=== PATIENT | female | born 1995 | race Caucasian/White ===

== ENCOUNTER 2017-10-20 11:40 | Emergency (ER) | payer OTHER ==
--- NOTE | 2017-10-20 13:23 | RAD ---
INDICATION: Right lower quadrant pain. Evaluate for ovarian torsion. History of left ovarian cancer with ORIF recommend COMPARISON: None TECHNIQUE: Longitudinal and transverse transvaginal scans of the pelvis were obtained. FINDINGS: Uterus: The uterus is normal in size. There are no focal masses. The uterus measures 7.0 x 2.6 x 3.9 cm. Endometrial thickness: The endometrial thickness is measured at 0.3 cm. There is an IUD in expected position. Free fluid: There is no significant free fluid . Ovaries: The ovaries are normal in size. The right ovary measures 2.7 x 1.5 x 3.9 cm. The left ovary is absent. Doppler interrogation demonstrates flow to the right ovary. Other: None IMPRESSION: left oophrectomy. Normal right ovary.
--- NOTE | 2017-10-20 13:39 | ED ---
Abdominal Pain/Female - HPI Summary HPI Summary: Pt sent here from [facility] with concern for right ovarian torsion as she reported abrupt onset RLQ pain w/ nausea this morning around 9:00am. Worsened as morning went on and she reports pain was so bad at one point, she almost vomited. Has not had anything to eat/drink since pain started (last had a yogurt this morning before pain started - just returned from road trip last night - no undercooked foods, ect but did eat fast food which is not normal for her). 1 loose stool since - no hematochezia, mucous, melena. Currently her pain is 5 out of 10 and she does not feel she needs any pain meds or nausea medicine. Denies fever, chills, headache, chest pain, shortness of breath, vaginal discharge, dysuria, urinary frequency, flank pain. She reports she is on her second day of menstruation currently has an IUD in place which she's had for a year (tiffani). 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 She had a CT scan in Aug for f/u - no findings at this time. She reports last time she had right lower quadrant pain she had appendicitis and so this was removed. She's had pain similar to this as well in the past and reports they've only found "fluid" telling her she may have ruptured an ovarian cyst but no cyst was clearly found on ultrasound. She is sexually active with one partner and denies history of STDs/vaginal infections. She does not use condoms. - History of Current Complaint Chief Complaint: EDAbdPain Stated Complaint: ABD PAIN Hx Obtained From: Patient Pain Intensity: 8 PMH/Surg Hx/FS Hx/Imm Hx Previously Healthy: Yes Endocrine/Hematology History: Reports: Other Endocrine/Hematological Disorders - [place] zone lymphoma Denies: Hx Anticoagulant Therapy, Hx Blood Disorders - Cancer History Cancer Type, Location and Year: [place] zone lymphoma - surgery, radiation and chemo - followed by [facility] - Surgical History Surgery Procedure, Year, and Place: Lt oophorectomy d/t cancer - Immunization History Immunizations Up to Date: Yes Infectious Disease History: No Infectious Disease History: Denies: Traveled Outside the [place] in Last 30 Days - Social History Occupation: Student Lives: Dormitory/Roommates Alcohol Use: None Hx Substance Use: No Substance Use Type: Reports: None Hx Tobacco Use: No Smoking Status (MU): Never Smoked Tobacco Review of Systems Constitutional: Negative Negative: Fever, Chills, Fatigue Eyes: Negative ENT: Negative Negative: Sore Throat, Ear Ache, Nasal Discharge Cardiovascular: Negative Negative: Palpitations, Chest Pain Respiratory: Negative Negative: Shortness Of Breath, Cough Positive: Abdominal Pain, Nausea. Negative: Vomiting, Diarrhea Positive: see HPI Musculoskeletal: Negative Skin: Negative Neurological: Negative Psychological: Normal All Other Systems Reviewed And Are Negative: Yes Physical Exam Triage Information Reviewed: Yes Vital Signs On Initial Exam: Initial Vitals Temp Pulse Resp BP Pulse Ox 98.4 F 81 18 124/63 100 10/20/17 11:47 10/20/17 11:47 10/20/17 11:47 10/20/17 11:47 10/20/17 11:47 Vital Signs Reviewed: Yes Appearance: Positive: Well-Appearing, No Pain Distress, Well-Nourished Skin: Positive: Warm, Skin Color Reflects Adequate Perfusion, Dry - no ecchymosis over ab/flank Head/Face: Positive: Normal Head/Face Inspection Eyes: Positive: Normal, EOMI, Conjunctiva Clear - anicertic sclera ENT: Positive: Normal ENT inspection, Hearing grossly normal, Pharynx normal - oral mucosa moist Neck: Positive: Supple, Nontender, No Lymphadenopathy Respiratory/Lung Sounds: Positive: Clear to Auscultation, Breath Sounds Present Cardiovascular: Positive: Normal, RRR, Pulses are Symmetrical in both Upper and Lower Extremities, S1, S2. Negative: Murmur, Rub Abdomen Description: Positive: No Organomegaly, Soft, Other: - Mild RLQ TTP - no rebounding. Negative: CVA Tenderness (R), CVA Tenderness (L), Distended, Guarding Bowel Sounds: Positive: Present Pelvic Exam: Positive: external exam normal, speculum exam normal - no lesions/ no masses, no cerv. motion tender, no masses, active bleeding - scant bloody mucous d/c from os - [address] (most likely IUD), tender adnexa - Rt - no masses palpable - feels like pelvic floor muscles are tender. Negative : cervicitis, tender uterus Musculoskeletal: Positive: Normal, Strength/ROM Intact Neurological: Positive: Normal, Sensory/Motor Intact, Alert, Oriented to Person Place, Time, CN Intact II-III Psychiatric: Positive: Normal Diagnostics - Vital Signs Vital Signs Temp Pulse Resp BP Pulse Ox 10/20/17 11:47 98.4 F 81 18 124/63 100 - Laboratory Result Diagrams: 10/20/17 15:41 10/20/17 15:41 Lab Statement: Any lab studies that have been ordered have been reviewed, and results considered in the medical decision making process. Re-Evaluation - Re-Evaluation First Eval Change: Improved - ab pain is not as bad as when she arrived - area is less tender than earlier today - no nausea since here Abdominal Pain Fem Course/Dx - Course Course Of Treatment: Pelvic exam unremarkable for PID, lesions, masses. Labs are WNL. U/S renal and GB normal. XR w/o obstruction pattern or other abdnormal findings. CT was deferred d/t pt's h/o cancer and recurrent CT's for rechecks (pt declined - does not want radiation if at all possible). Discussed case with Dr. Padilla - okay to make assessment with labs, urine and U/S, XR images. Pt's pain improved while here - tolerated PO liquids w/o difficulty. Advised to continue to monitor her sx and return to ED if danger s/sx present. Pt agrees w/ plan and will f/u w/ [facility] this week for recheck of sx. - Diagnoses Provider Diagnoses: RLQ abdominal pain Discharge - Discharge Plan Condition: Stable Disposition: HOME Patient Education Materials: Acute Abdominal Pain (ED) Referrals: [facility] - Fili ROWAN [Primary Care Provider] - Additional Instructions: The definitive cause of your right lower quadrant pain was not identified today. However, emergent causes of pain were ruled out such as but not limited to a kidney stone, urinary tract obstruction, ovarian torsion, ovarian cyst, obstruction of bowels, infection of the urinary tract and/or pelvis. It is important that you continue to monitor yourself for signs or symptoms of worsening pain or additional symptoms such as fever, chills, nausea with vomiting, diarrhea or bloody stool. If any of these occur, return to the emergency Department. Otherwise follow up with [facility] this week to recheck symptoms. If necessary, you may need to consult [facility] for further consult. NOTE: Your labs were all normal today and no lymph nodes were palpated. I
[2017-10-20 15:57] LABS: ABS Basophils 0.1 10^3/ul (0-0.2); ABS Eosinophils 0.1 10^3/ul (0-0.6); ABS Lymphocytes 1.8 10^3/ul (1.0-4.8); ABS Monocytes 0.4 10^3/ul (0-0.8); ABS Neutrophils 5.8 10^3/ul (1.5-7.7); ABS Nucleated RBC 0 10^3/ul; Eosinophil % 1.2 % (0-6); Hematocrit 43 % (35-47); Hemoglobin 15.1 g/dl (12.0-16.0); Lymphocyte % 22.1 % (25-47); Mean Corpuscular HGB Conc 35 g/dl (31-36); Mean Corpuscular Hemoglobin 30 pg (27-31); Mean Corpuscular Volume 86 fL (80-97); Mean Platelet Volume 8 um3 (7.4-10.4); Nucleated Red Blood Cells % 0; Platelet Count 303 10^3/ul (150-450); Red Cell Distribution Width 13 % (10.5-15); White Blood Count 8.2 10^3/ul (3.5-10.8)
[2017-10-20 16:11] LABS: Urine Appearance Clear; Urine Blood 1+ (Negative); Urine Color Yellow; Urine Ketones Negative (Negative); Urine Protein Negative (Negative); Urine Specific Gravity 1.015 (1.010-1.030); Urine Urobilinogen Negative (Negative)
[2017-10-20 16:15] LABS: EGFR Non-African American 103.3 (>60)
[2017-10-20] MEDS ORDERED: NS 0.9% 1000 ML* 1,000 ML IV ONE (17:15)
--- NOTE | 2017-10-20 17:55 | RAD ---
INDICATION: Right-sided bowel pain COMPARISON: None TECHNIQUE: Longitudinal and transverse scans of the right upper quadrant were obtained. Doppler interrogation of the hepatic and portal venous system was performed. FINDINGS: Liver: The liver is normal in size and echogenicity. There are no focal masses. The liver measures 17.3 cm in cephalocaudal dimension. Vessels: There is normal hepatic and portal venous flow. Bile ducts: There is no evidence of intrahepatic or extrahepatic ductal dilatation. The common duct measures 0.3 cm. Gallbladder: The sonographic appearance of the gallbladder is normal. There is no evidence of cholelithiasis, thickening of the gallbladder wall, or pericholecystic fluid. Pancreas: The visualized pancreas appears normal Right kidney: The right kidney is normal in size and echogenicity. There are no masses or calculi. There is no evidence of hydronephrosis. The right kidney measures 9.8 x 4.2 x 4.4 cm. IVC and aorta: The aorta and superior vena cava appear normal. Fluid: There is no ascites. Other: None. IMPRESSION: NORMAL GALLBLADDER.
--- NOTE | 2017-10-20 18:17 | RAD ---
INDICATION: Assess for obstruction COMPARISON: None TECHNIQUE: Erect and supine views of the abdomen are submitted. FINDINGS: Bones: There are no acute bony findings. Soft tissues: The soft tissues appear normal. The psoas margins are sharp. Bowel gas pattern: Normal Calcifications: There are no abnormal calcifications. Other: There are sutures projecting over the left lower chest. There clips in the minor pelvis in the right. There is an IUD IMPRESSION: NO ACUTE DIAGNOSTIC FINDINGS. NO OBSTRUCTION.
[2017-10-20 19:22] VITALS: BP 108/58
--- NOTE | 2017-10-23 09:07 | ED ---
Progress - Progress Note Progress Note: urine culture results show 25-50,000 of e coli and 50-75,000 of enterococcus faecalis. only had 1+ blood and 1+ bacteria in urinalysis. patient was not complaining of symptoms. treatment is not required due to insignificant amount. called patient at 9:06am however no answer, will wait for call back. called to see how she was doing, and only if symptomatic will possibly begin treatment. no further action required at this time. below results/notes are from visit in ED the other day. - Consult/PCP Time Called: 09:07 Re-Evaluation - Re-Evaluation First Eval Change: Improved - ab pain is not as bad as when she arrived - area is less tender than earlier today - no nausea since here Course/Dx - Course Course Of Treatment: Pelvic exam unremarkable for PID, lesions, masses. Labs are WNL. U/S renal and GB normal. XR w/o obstruction pattern or other abdnormal findings. CT was deferred d/t pt's h/o cancer and recurrent CT's for rechecks (pt declined - does not want radiation if at all possible). Discussed case with Dr. Padilla - okay to make assessment with labs, urine and U/S, XR images. Pt's pain improved while here - tolerated PO liquids w/o difficulty. Advised to continue to monitor her sx and return to ED if danger s/sx present. Pt agrees w/ plan and will f/u w/ [facility] this week for recheck of sx. - Diagnoses Provider Diagnoses: RLQ abdominal pain
== END 2017-10-20 19:22 | disposition home or self-care (01) ==
LOC: ED 11:40
DX: R10.31 Right lower quadrant pain (principal); Z97.5 Presence of (intrauterine) contraceptive device
CPT/HCPCS: 36415; 74019; 76705; 76830; 80053; 81003; 81015; 83605; 83690; 83735; 84702; 85025; 86140; 87077; 87086; 87186; 87480; 87491; 87510; 87591; 87661; 99283

== ENCOUNTER 2019-09-30 12:19 | Emergency (ER) | payer OTHER ==
[2019-09-30 13:47] LABS: ABS Eosinophils 0.1 10^3/ul (0-0.6); ABS Lymphocytes 1.2 10^3/ul (1.0-4.8); ABS Monocytes 0.3 10^3/ul (0-0.8); ABS Neutrophils 9.1 10^3/ul (1.5-7.7); Eosinophil % 0.6 %; Hematocrit 44 % (35-47); Hemoglobin 15.1 g/dL (12.0-16.0); Lymphocyte % 11.4 %; Mean Corpuscular HGB Conc 34 g/dL (31-36); Mean Corpuscular Hemoglobin 30 pg (27-31); Mean Corpuscular Volume 87 fL (80-97); Red Blood Count 5.04 10^6 /uL (3.70-4.87); Red Cell Distribution Width 12 % (10-15); White Blood Count 10.7 10^3/uL (3.5-10.8)
[2019-09-30 13:56] LABS: ALT 7 U/L (7-52); AST 16 U/L (13-39); Albumin 4.8 g/dL (3.2-5.2); Albumin/Globulin Ratio 1.5 (1-3); Alkaline Phosphatase 52 U/L (34-104); Anion Gap 11 mmol/L (2-11); Blood Urea Nitrogen 9 mg/dL (6-24); C Reactive Protein 8.08 mg/L (<8.01); CO2 Carbon Dioxide 21 mmol/L (22-32); Calcium 9.6 mg/dL (8.6-10.3); Chloride 105 mmol/L (101-111); EGFR Non-African American 107.4 (>60); Globulin 3.3 g/dL (2-4); Glucose 96 mg/dL (70-100); Potassium 4.1 mmol/L (3.5-5.0); Sodium 137 mmol/L (135-145); Total Protein 8.1 g/dL (6.4-8.9)
--- NOTE | 2019-09-30 14:00 | ED ---
Abdominal Pain/Female - HPI Summary HPI Summary: This patient is a 23 year old female presenting to [facility] with right sided abdominal pain since this morning. She states Hx of appendectomy and left oophorectomy 3 years ago and ovarian cysts. She denies dysuria, discharge, Hx kidney stones. She reports nausea. 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 She states it hurts to stand up. She states the pain is better than it was this morning. Her last normal BM was this morning. - History of Current Complaint Chief Complaint: EDAbdPain Stated Complaint: R SIDE ABD PAIN PER PT Time Seen by Provider: 09/30/19 13:54 Hx Obtained From: Patient Onset/Duration: Lasting Hours Pain Intensity: 9 Pain Scale Used: 0-10 Numeric Location: Discrete At: RUQ, Discrete At: RLQ Allergies/Adverse Reactions: Allergies Allergy/AdvReac Type Severity Reaction Status Date / Time pentamidine isethionate Allergy Shortness Verified 09/30/19 12:22 of Breath Home Medications: Home Medications Ethinyl Estradiol/Drospirenone [Ara 3 mg-0.02 mg Tablet] 1 tab PO DAILY [History Confirmed 09/30/19] Rizatriptan ODT (NF) [Maxalt-LATEX CASTER (NF)] 1 tab PO DAILY 09/30/19 [History Confirmed 09/30/19] PMH/Surg Hx/FS Hx/Imm Hx Endocrine/Hematology History: Reports: Other Endocrine/Hematological Disorders - [place] zone lymphoma Denies: Hx Anticoagulant Therapy, Hx Blood Disorders - Cancer History Cancer Type, Location and Year: [place] zone lymphoma - surgery, radiation and chemo - followed by [facility] - Surgical History Surgery Procedure, Year, and Place: Lt oophorectomy d/t cancer Infectious Disease History: No Infectious Disease History: Denies: Traveled Outside the [place] in Last 30 Days - Social History Alcohol Use: None Hx Substance Use: No Substance Use Type: Reports: None Hx Tobacco Use: No Smoking Status (MU): Never Smoked Tobacco Review of Systems Positive: Abdominal Pain, Nausea Negative: dysuria, discharge All Other Systems Reviewed And Are Negative: Yes Physical Exam - Summary Physical Exam Summary: Constitutional: Well-developed, Well-nourished, Alert. (-) Distressed Skin: Warm, Dry HENT: Normocephalic; Atraumatic Eyes: Conjunctiva normal Neck: Musculoskeletal ROM normal neck. (-) JVD, (-) Stridor, (-) Tracheal deviation Cardio: Rhythm regular, rate normal, Heart sounds normal; Intact distal pulses; Radial pulses are 2+ and symmetric. (-) Murmur Pulmonary/Chest wall: Effort normal. (-) Respiratory distress, (-) Wheezes, (-) Rales Abd: Soft, RLQ focal tenderness, no flank tendernesss (-) Distension, (-) Guarding, (-) Rebound Musculoskeletal: (-) Edema Lymph: (-) Cervical adenopathy Neuro: Alert, Oriented x3 Psych: Mood and affect Normal Triage Information Reviewed: Yes Vital Signs On Initial Exam: Initial Vitals Temp Pulse Resp BP Pulse Ox 98.8 F 92 15 121/88 99 09/30/19 12:21 09/30/19 12:21 09/30/19 12:21 09/30/19 12:21 09/30/19 12:21 Vital Signs Reviewed: Yes Procedures - Sedation Patient Received Moderate/Deep Sedation with Procedure: No Diagnostics - Vital Signs Vital Signs Temp Pulse Resp BP Pulse Ox 09/30/19 12:21 98.8 F 92 15 121/88 99 - Laboratory Lab Results: Lab Results 09/30/19 Range/Units 13:28 WBC 10.7 (3.5-10.8) 10^3/uL RBC 5.04 H (3.70-4.87) 10^6 /uL Hgb 15.1 (12.0-16.0) g/dL Hct 44 (35-47) % MCV 87 (80-97) fL MCH 30 (27-31) pg MCHC 34 (31-36) g/dL RDW 12 (10-15) % Plt Count Pending MPV Pending Neut % (Auto) 85.1 % Lymph % (Auto) 11.4 % Wilkes % (Auto) 2.6 % Eos % (Auto) 0.6 % Baso % (Auto) 0.3 % Absolute Neuts (auto) 9.1 H (1.5-7.7) 10^3/ul Absolute Lymphs (auto) 1.2 (1.0-4.8) 10^3/ul Absolute Monos (auto) 0.3 (0-0.8) 10^3/ul Absolute Eos (auto) 0.1 (0-0.6) 10^3/ul Absolute Basos (auto) 0.0 (0-0.2) 10^3/ul Absolute Nucleated RBC 0.0 10^3/ul Nucleated RBC % 0.0 Result Diagrams: 09/30/19 14:46 09/30/19 13:28 Lab Statement: Any lab studies that have been ordered have been reviewed, and results considered in the medical decision making process. - CT Abd/Pel CT Interpretation Completed By: Radiologist Summary of CT Findings: 1. Postoperative changes related to prior left nephrectomy. Surgical cups are seen in the right hemipelvis. ED Provider has reviewed this report. - Ultrasound No standard instances Ultrasound Interpretation Completed By: Radiologist Summary of Ultrasound Findings: 1. Unremarkable right ovary. 2. Status Post Left Oopherectomy. ED Provider has reviewed this report. Abdominal Pain Fem Course/Dx - Course Course Of Treatment: This patient is a 23 year old female presenting to [facility] with right sided abdominal pain. She states Hx of appendectomy and ovarian cysts. Transvaginal US was unremarkable. Labs are unremarkable except RBC is 5.04 H, Absolute Neuts 9.1 H, CO2 21 L, Lactic Acid < 0.3 L, CRP 8.08 H, Urine Blood 3+ A, Urine RBC 3+ A. Plan for discharge was discussed with the patient and she was agreeable with this plan. - Diagnoses Provider Diagnoses: Abdominal pain Discharge ED - Sign-Out/Discharge Documenting (check all that apply): Patient Departure - Discharge - Discharge Plan Condition: Stable Disposition: HOME Patient Education Materials: Abdominal Pain (ED) Referrals: [facility] - Fili ROWAN [Primary Care Provider] - Additional Instructions: Return to ED with new or worsening symptoms. - Billing Disposition and Condition Condition: STABLE Disposition: Home - Attestation Statements Document Initiated by Scribe: Yes Documenting Scribe: Rogelio Spencer Provider For Whom Zofia is Documenting (Include Credential): DO Katy Sheikhibbenito Attestation: Rogelio Koch scribed for Alvin Romero DO on 09/30/19 at 2014. Scribe Documentation Reviewed: Yes Provider Attestation: The documentation as recorded by the Rogelio carmona accurately reflects the service I personally performed and the decisions made by me, Alvin Romero, DO Status of Scribe Document: Viewed
[2019-09-30] MEDS ORDERED: Ondansetron INJ* 2 MG/ML VIAL IV ONE (14:03)
[2019-09-30] MEDS ORDERED: Ketorolac INJ* 30 MG/ML 1 ML VIAL IV PUSH ONE (14:03)
[2019-09-30] MEDS ORDERED: NS 0.9% 1000 ML** 1,000 ML IV ONE ×2 (14:03→15:42)
[2019-09-30 14:14] LABS: Platelet Count Platelets clumped. 10^3/uL (150-450)
[2019-09-30 14:26] LABS: HCG Pregnancy < 0.60 mIU/mL
[2019-09-30 14:59] LABS: Mean Platelet Volume 8.7 fL (7.4-10.4); Platelet Count 240 10^3/uL (150-450)
[2019-09-30 16:24] LABS: Urine Appearance Cloudy; Urine Bilirubin Negative (Negative); Urine Blood 3+ (Negative); Urine Color Yellow; Urine Glucose Negative (Negative); Urine Ketones Negative (Negative); Urine Nitrite Negative (Negative); Urine Protein Negative (Negative); Urine Specific Gravity 1.021 (1.010-1.030); Urine Urobilinogen Negative (Negative)
[2019-09-30 16:26] LABS: Urine Bacteria Absent (Absent); Urine Red Blood Cell 3+(>10/hpf) (Absent); Urine Squamous Epithelial Cell Present (Absent); Urine White Blood Cell Trace(0-5/hpf) (Absent)
[2019-09-30] MEDS ORDERED: Iohexol 300* (CONTRAST) 10 ML SDV IV ONE (16:59)
[2019-09-30 18:54] VITALS: BP 118/72
== END 2019-09-30 18:52 | disposition home or self-care (01) ==
LOC: ED 12:19
DX: R10.9 Unspecified abdominal pain (principal); N13.30 Unspecified hydronephrosis; Z90.5 Acquired absence of kidney; Z85.72 Personal history of non-Hodgkin lymphomas; Z90.721 Acquired absence of ovaries, unilateral; Z90.89 Acquired absence of other organs; Z79.899 Other long term (current) drug therapy; Z88.4 Allergy status to anesthetic agent
CPT/HCPCS: 36415; 74177; 76830; 80053; 81003; 81015; 83605; 83690; 84702; 85025; 85049; 86140; 87086; 96361; 96374; 99283; J1885; J2405; Q9967

== ENCOUNTER 2019-10-01 21:54 | Emergency (ER) | payer OTHER ==
[2019-10-02 01:07] LABS: Urine Appearance Clear; Urine Bilirubin Negative (Negative); Urine Blood 1+ (Negative); Urine Color Yellow; Urine Glucose Negative (Negative); Urine Ketones Trace (Negative); Urine Nitrite Negative (Negative); Urine Protein 1+(30 mg/dL) (Negative); Urine Specific Gravity 1.026 (1.010-1.030); Urine Urobilinogen Negative (Negative)
[2019-10-02 01:09] LABS: Urine Bacteria Absent (Absent); Urine Red Blood Cell 2+(6-10/hpf) (Absent); Urine Squamous Epithelial Cell Present (Absent); Urine White Blood Cell Trace(0-5/hpf) (Absent)
[2019-10-02 01:54] LABS: ABS Basophils 0.1 10^3/ul (0-0.2); ABS Eosinophils 0.1 10^3/ul (0-0.6); ABS Lymphocytes 1.3 10^3/ul (1.0-4.8); ABS Monocytes 0.9 10^3/ul (0-0.8); ABS Neutrophils 12.2 10^3/ul (1.5-7.7); Eosinophil % 0.6 %; Hematocrit 38 % (35-47); Hemoglobin 13.1 g/dL (12.0-16.0); Lymphocyte % 8.7 %; Mean Corpuscular HGB Conc 35 g/dL (31-36); Mean Corpuscular Hemoglobin 30 pg (27-31); Mean Corpuscular Volume 86 fL (80-97); Mean Platelet Volume 8.8 fL (7.4-10.4); Platelet Count 225 10^3/uL (150-450); Red Blood Count 4.39 10^6 /uL (3.70-4.87); Red Cell Distribution Width 12 % (10-15); White Blood Count 14.4 10^3/uL (3.5-10.8)
[2019-10-02 01:59] LABS: INR 1.03 (0.82-1.09)
[2019-10-02 02:11] LABS: ALT 8 U/L (7-52); AST 13 U/L (13-39); Albumin 4.3 g/dL (3.2-5.2); Albumin/Globulin Ratio 1.5 (1-3); Alkaline Phosphatase 43 U/L (34-104); Anion Gap 9 mmol/L (2-11); BUN/Creatinine Ratio 8.1 (8-20); Blood Urea Nitrogen 8 mg/dL (6-24); C Reactive Protein 5.58 mg/L (<8.01); CO2 Carbon Dioxide 23 mmol/L (22-32); Calcium 9.8 mg/dL (8.6-10.3); Chloride 107 mmol/L (101-111); EGFR African American 85.7 (>60); EGFR Non-African American 70.8 (>60); Globulin 2.8 g/dL (2-4); Glucose 116 mg/dL (70-100); Sodium 139 mmol/L (135-145); Total Protein 7.1 g/dL (6.4-8.9)
[2019-10-02 02:18] LABS: HCG Pregnancy < 0.60 mIU/mL
--- NOTE | 2019-10-02 02:32 | ED ---
Abdominal Pain/Female - HPI Summary HPI Summary: The patient is a 23 y/o female presenting to [facility] with a chief complaint of severe RLQ abdominal pain for the last two days. She reports that she was here when the pain initially began, and she had labs, a US, and a CT which revealed no renal calculi, and right greater than left hydronephrosis with poor opacification of the proximal right ureter on delayed imaging. Today, the pain is worsening and sharp rated 9/10 in severity. She has taken Tylenol, Ibuprofen , and 5mg Oxycodone last night at 1930 to no relief. She endorses nausea, vomiting, increased urinary frequency, and pressure with urination, but she denies any fevers, dysuria, or vaginal discharge. She denies concern for STDs. She notes a history of suspected ovarian cysts in the past, but the pain from those usually subsides in a few hours. LNMP: 1.5 weeks ago. PMHx: Villa zone lymphoma, left oophorectomy, appendectomy. FHx: kidney stones. Nonsmoker, occasional EtOH, no substance use. Medications reviewed. Allergies noted. - History of Current Complaint Chief Complaint: EDAbdPain Stated Complaint: SEVERE ABD PAIN PER PT Time Seen by Provider: 10/02/19 01:32 Hx Obtained From: Patient Onset/Duration: Sudden Onset, Lasting Hours, Still Present Timing: Constant Severity Initially: Moderate Severity Currently: Severe Pain Intensity: 9 Pain Scale Used: 0-10 Numeric Location: Discrete At: RLQ Radiates: No Character: Sharp Aggravating Factor(s): Nothing Alleviating Factor(s): Nothing Associated Signs and Symptoms: Positive: Nausea, Vomiting, Other: - increased urinary frequency, pressure with urination; Negative: dysuria. Negative: Fever , Vaginal Discharge Allergies/Adverse Reactions: Allergies Allergy/AdvReac Type Severity Reaction Status Date / Time pentamidine isethionate Allergy Shortness Verified 10/01/19 22:00 of Breath PMH/Surg Hx/FS Hx/Imm Hx Endocrine/Hematology History: Reports: Other Endocrine/Hematological Disorders - [place] zone lymphoma Denies: Hx Anticoagulant Therapy, Hx Blood Disorders, Hx Diabetes Cardiovascular History: Denies: Hx Hypertension - Cancer History Cancer Type, Location and Year: Villa zone lymphoma - surgery, radiation and chemo - followed by [facility] - Surgical History Surgical History: Yes Surgery Procedure, Year, and Place: Lt oophorectomy d/t cancer Infectious Disease History: No Infectious Disease History: Denies: Traveled Outside the [place] in Last 30 Days - Family History Known Family History: Positive: Renal Disease - kidney stones, Other - Social History Alcohol Use: Occasionally Hx Substance Use: No Substance Use Type: Reports: None Hx Tobacco Use: No Smoking Status (MU): Never Smoked Tobacco - Additional Comments History Additional Comments: [place] zone lymphoma, left oophorectomy, appendectomy Review of Systems - ROS Summary Review of Systems Summary: Home Medications Medication Instructions Recorded Confirmed Type Ethinyl Estradiol/Drospirenone 1 tab PO DAILY 09/30/19 10/02/19 History [Ara 3 mg-0.02 mg Tablet] Rizatriptan ODT (NF) [Maxalt-DRY SANDER 1 tab PO DAILY 09/30/19 10/02/19 History (NF)] Negative: Fever Positive: Abdominal Pain - RLQ, Vomiting, Nausea Positive: frequency - increased, other - pressure with urination. Negative: dysuria, discharge All Other Systems Reviewed And Are Negative: Yes Physical Exam - Summary Physical Exam Summary: General: Well-developed, Well-nourished female. Appears to be in moderate distress, tearful on exam HEENT: Normocephalic, Atraumatic. Eyes: Conjuctiva normal, PERRL. Oropharynx: Clear, mucous membranes moist, (-) exudates. Neck: Soft, FROM, (-) lymphadenopathy, (-) thyromegaly, (-) JVD. Cardiovascular: Normal sinus rhythm, (-) murmur. Lungs: Clear to auscultation bilaterally (-) wheezes, (-) rales, (-) rhonchi. Abdomen: Soft, moderated RLQ and RUQ tenderness to palpation, non-distended, (- ) organomegaly, normal bowel sounds. Back: (-) CVA tenderness Extremities: No edema. Skin: Warm, dry, (-) rash. Neuro: Alert and oriented x3, moves all extremities equally. No ataxia. No gait disturbance. No sensory deficit. No amnesia. Psychiatric: Moderately anxious appearing, affect normal. Triage Information Reviewed: Yes Vital Signs On Initial Exam: Initial Vitals Temp Pulse Resp BP Pulse Ox 98.7 F 78 15 142/90 99 10/01/19 21:59 10/01/19 21:59 10/01/19 21:59 10/01/19 21:59 10/01/19 21:59 Vital Signs Reviewed: Yes Procedures - Sedation Patient Received Moderate/Deep Sedation with Procedure: No Diagnostics - Vital Signs Vital Signs Temp Pulse Resp BP Pulse Ox 10/02/19 02:04 97 137/88 99 10/02/19 02:00 94 99 10/02/19 01:34 95 133/89 100 10/02/19 01:12 82 100 10/02/19 01:04 132/89 10/02/19 00:43 99.2 F 91 15 134/88 98 10/01/19 21:59 98.7 F 78 15 142/90 99 - Laboratory Lab Results: Lab Results 10/02/19 10/02/19 10/02/19 Range/Units 00:55 01:44 01:44 WBC 14.4 H (3.5-10.8) 10^3/uL RBC 4.39 (3.70-4.87) 10^6 /uL Hgb 13.1 (12.0-16.0) g/dL Hct 38 (35-47) % MCV 86 (80-97) fL MCH 30 (27-31) pg MCHC 35 (31-36) g/dL RDW 12 (10-15) % Plt Count 225 (150-450) 10^3/uL MPV 8.8 (7.4-10.4) fL Neut % (Auto) 84.4 % Lymph % (Auto) 8.7 % [place] % (Auto) 5.9 % Eos % (Auto) 0.6 % Baso % (Auto) 0.4 % Absolute Neuts (auto) 12.2 H (1.5-7.7) 10^3/ul Absolute Lymphs (auto) 1.3 (1.0-4.8) 10^3/ul Absolute Monos (auto) 0.9 H (0-0.8) 10^3/ul Absolute Eos (auto) 0.1 (0-0.6) 10^3/ul Absolute Basos (auto) 0.1 (0-0.2) 10^3/ul Absolute Nucleated RBC 0.0 10^3/ul Nucleated RBC % 0.0 INR (Anticoag Therapy) (0.82-1.09) Sodium 139 (135-145) mmol/L Potassium 4.0 (3.5-5.0) mmol/L Chloride 107 (101-111) mmol/L Carbon Dioxide 23 (22-32) mmol/L Anion Gap 9 (2-11) mmol/L BUN 8 (6-24) mg/dL Creatinine 0.99 H (0.51-0.95) mg/dL Est GFR ( Amer) 85.7 (>60) Est GFR (Non-Af Amer) 70.8 (>60) BUN/Creatinine Ratio 8.1 (8-20) Glucose 116 H (70-100) mg/dL Lactic Acid (0.5-2.0) mmol/L Calcium 9.8 (8.6-10.3) mg/dL Total Bilirubin 0.60 (0.2-1.0) mg/dL AST 13 (13-39) U/L ALT 8 (7-52) U/L Alkaline Phosphatase 43 (34-104) U/L C-Reactive Protein 5.58 (<8.01) mg/L Total Protein 7.1 (6.4-8.9) g/dL Albumin 4.3 (3.2-5.2) g/dL Globulin 2.8 (2-4) g/dL Albumin/Globulin Ratio 1.5 (1-3) Lipase 12 (11.0-82.0) U/L Beta HCG, Quant < 0.60 mIU/mL Urine Color Yellow Urine Appearance Clear Urine pH 5.0 (5-9) Ur Specific [place] 1.026 (1.010-1.030) Urine Protein 1+(30 mg/dl) A (Negative) Urine Ketones Trace A (Negative) Urine Blood 1+ A (Negative) Urine Nitrate Negative (Negative) Urine Bilirubin Negative (Negative) Urine Urobilinogen Negative (Negative) Ur Leukocyte Esterase Trace A (Negative) Urine WBC (Auto) Trace(0-5/hpf) (Absent) Urine RBC (Auto) 2+(6-10/hpf) A (Absent) Ur Squamous Epith Cells Present A (Absent) Calcium Oxalate Crystal Present A (Absent) Urine Bacteria Absent (Absent) Urine Glucose Negative (Negative) 10/02/19 10/02/19 Range/Units 01:44 01:44 WBC (3.5-10.8) 10^3/uL RBC (3.70-4.87) 10^6 /uL Hgb (12.0-16.0) g/dL Hct (35-47) % MCV (80-97) fL MCH (27-31) pg MCHC (31-36) g/dL RDW (10-15) % Plt Count (150-450) 10^3/uL MPV (7.4-10.4) fL Neut % (Auto) % Lymph % (Auto) % [place] % (Auto) % Eos % (Auto) % Baso % (Auto) % Absolute Neuts (auto) (1.5-7.7) 10^3/ul Absolute Lymphs (auto) (1.0-4.8) 10^3/ul Absolute Monos (auto) (0-0.8) 10^3/ul Absolute Eos (auto) (0-0.6) 10^3/ul Absolute Basos (auto) (0-0.2) 10^3/ul Absolute Nucleated RBC 10^3/ul Nucleated RBC % INR (Anticoag Therapy) 1.03 (0.82-1.09) Sodium (135-145) mmol/L Potassium (3.5-5.0) mmol/L Chloride (101-111) mmol/L Carbon Dioxide (22-32) mmol/L Anion Gap (2-11) mmol/L BUN (6-24) mg/dL Creatinine (0.51-0.95) mg/dL Est GFR ( Amer) (>60) Est GFR (Non-Af Amer) (>60) BUN/Creatinine Ratio (8-20) Glucose (70-100) mg/dL Lactic Acid 1.4 (0.5-2.0) mmol/L Calcium (8.6-10.3) mg/dL Total Bilirubin (0.2-1.0) mg/dL AST (13-39) U/L ALT (7-52) U/L Alkaline Phosphatase (34-104) U/L C-Reactive Protein (<8.01) mg/L Total Protein (6.4-8.9) g/dL Albumin (3.2-5.2) g/dL Globulin (2-4) g/dL Albumin/Globulin Ratio (1-3) Lipase (11.0-82.0) U/L Beta HCG, Quant mIU/mL Urine Color Urine Appearance Urine pH (5-9) Ur Specific [place] (1.010-1.030) Urine Protein (Negative) Urine Ketones (Negative) Urine Blood (Negative) Urine Nitrate (Negative) Urine Bilirubin (Negative) Urine Urobilinogen (Negative) Ur Leukocyte Esterase (Negative) Urine WBC (Auto) (Absent) Urine RBC (Auto) (Absent) Ur Squamous Epith Cells (Absent) Calcium Oxalate Crystal (Absent) Urine Bacteria (Absent) Urine Glucose (Negative) Result Diagrams: 10/02/19 01:44 10/02/19 01:44 Lab Statement: Any lab studies that have been ordered have been reviewed, and results considered in the medical decision making process. - Radiology Abdomen XR Radiology Interpretation Completed By: ED Physician Summary of Radiographic Findings: No obvious signs of obstruction. No signs of renal calculi. ED physician has reviewed and interpreted this report. Pending official read. Re-Evaluation - Re-Evaluation First Eval Re-Evaluation Time: 06:25 Comment: I have discussed results with the patient. Discussed symptoms that warrant immediate return to ED. Abdominal Pain Fem Course/Dx - Course Course Of Treatment: Patient administered Zofran for nausea and Toradol for pain. - Diagnoses Provider Diagnoses: Right sided abdominal pain Discharge ED - Sign-Out/Discharge Documenting (check all that apply): Patient Departure - Patient will be discharged home. - Discharge Plan Condition: Stable Disposition: HOME Prescriptions: Ketorolac TAB * [Toradol TAB *] 10 mg PO Q6H #20 tab Patient Education Materials: Acute Abdominal Pain (DC) Forms: *School Release Referrals: [facility] - Fili ROWAN [Primary Care Provider] - 10/02/19 Additional Instructions: Please follow up with your primary care physician within three days. Please return to ED for any new or worsening symptoms. - Attestation Statements Document Initiated by Scribe: Yes Documenting Scribe: Lou Crocker Provider For Whom Zofia is Documenting (Include Credential): Dr. Sonia Morgan MD Scribe Attestation: Lou Koch, scribed for Dr. Sonia Morgan MD on 10/02/19 at 0652. Status of Scribe Document: Ready
[2019-10-02] MEDS ORDERED: Ketorolac INJ* 30 MG/ML 1 ML VIAL IV PUSH ONE ×2 (02:59→05:15)
[2019-10-02] MEDS ORDERED: Ondansetron INJ* 2 MG/ML VIAL IV ONE (05:15)
[2019-10-02 07:03] VITALS: BP 120/87
== END 2019-10-02 06:44 | disposition home or self-care (01) ==
LOC: ED 21:54
DX: R10.31 Right lower quadrant pain (principal); R11.2 Nausea with vomiting, unspecified; R35.0 Frequency of micturition; Z85.72 Personal history of non-Hodgkin lymphomas; Z90.721 Acquired absence of ovaries, unilateral; Z90.89 Acquired absence of other organs; Z79.899 Other long term (current) drug therapy; Z88.8 Allergy status to other drugs, medicaments and biological substances
CPT/HCPCS: 36415; 74018; 80053; 81003; 81015; 83605; 83690; 84702; 85025; 85610; 86140; 87086; 96374; 96375; 96376; 99284; J1885; J2405